=== PATIENT | male | born 1965 | race Caucasian/White ===

== ENCOUNTER 2020-08-12 20:55 | Emergency (ER) | payer BC, OTHER ==
[2020-08-12 22:36] VITALS: BP 159/95; PULSE 69; RESP 18; TEMP 98.1
[2020-08-12] MEDS ORDERED: FLUORESCEIN STRIPS 1 MG STRIP RIGHT EYE ONE (22:41)
[2020-08-12] MEDS ORDERED: PROPARACAINE 0.5% OPHTH DROPS 15 ML BTL RIGHT EYE STA (22:41)
[2020-08-12] MEDS ORDERED: DIPH,PERTUS(ACELL)TETVAC-LF 0.5 ML VIAL IM ONE (23:10)
--- NOTE | 2020-08-12 23:12 | ED ---
General Adult HPI - General Chief complaint: Eye Problems Stated complaint: debrisin R eye Time Seen by Provider: 08/12/20 22:40 Source: patient Mode of arrival: ambulatory - History of Present Illness Initial comments: 55 year-old male patient presents to the emergency department for evaluation of pain and irritation to the right eye. Patient states he was working on a car last night and thinks he may have gotten some rust in his eye. States he went to urgent care today and was told he had an abrasion to the eye and was given tobramycin drops. Patient states that the pain is worse, he feels there is something remaining in the eye, and presented here for further evaluation. Patient states he is having a difficult time keeping the eye open. Denies any blurred or double vision. Denies headache or any other injuries. - Related Data Home Medications Medication Instructions Recorded Confirmed Sertraline [Zoloft] 50 mg PO DAILY 10/17/14 10/17/14 Allergies Allergy/AdvReac Type Severity Reaction Status Date / Time No Known Allergies Allergy Verified 08/12/20 22:32 Review of Systems ROS Statement: Those systems with pertinent positive or pertinent negative responses have been documented in the HPI. ROS Other: All systems not noted in ROS Statement are negative. Past Medical History Past Medical History: No Reported History History of Any Multi-Drug Resistant Organisms: None Reported Past Surgical History: No Surgical Hx Reported Past Psychological History: Anxiety Smoking Status: Never smoker Past Alcohol Use History: Occasional Past Drug Use History: None Reported General Exam General appearance: alert, in no apparent distress, other (Physical well- developed, well-nourished adult male patient in no acute distress.) Eye exam: Present: PERRL, EOMI, other (Fluorescein stain with Wood's lamp examination was performed to the right eye. There is evidence for metallic foreign body with rust ring to around the 3:00 area on the cornea. No evidence for corneal abrasion. Negative Patel sign. I did invert the lids, no further evidence of foreign body.). Absent: scleral icterus, conjunctival injection, periorbital swelling Respiratory exam: Present: normal lung sounds bilaterally. Absent: respiratory distress, wheezes, rales, rhonchi, stridor Cardiovascular Exam: Present: regular rate, normal rhythm, normal heart sounds. Absent: systolic murmur, diastolic murmur, rubs, gallop, clicks Neurological exam: Present: alert, oriented X3, CN II-XII intact Psychiatric exam: Present: normal affect, normal mood Skin exam: Present: warm, dry, intact, normal color. Absent: rash Course Vital Signs 08/12/20 22:32 Temperature 98.1 F Pulse Rate 69 Respiratory 18 Rate Blood Pressure 159/95 O2 Sat by Pulse 99 Oximetry Procedures - Forgein Body Removal Eye Site: Right Location in eye(s): 3:00 on the cornea Anesthetic Used: Proparacaine Eye Exam Technique: Metcalf Lamp, Fluorescein Foreign Body Suspected: Metal Forgein Body Removal Technique: Cotton Swab, Needle Remaining Debris: Yes Patient Tolerated: no complications Medical Decision Making - Medical Decision Making 55-year-old male patient presented for evaluation of possible foreign body to the right eye. Physical examination did reveal a metallic foreign body with rust ring to around 3:00 on the cornea. No evidence for corneal abrasion. I did anesthetize the eye with proparacaine, used insulin needle to remove the foreign body. I did have partial removal rust ring remained. He'll be discharged follow-up with ophthalmology for further evaluation tomorrow. He already had tobramycin drops from previous urgent care visit. He will is instructed to continue use of these. Return parameters were discussed in detail. He verbalizes understanding and agrees with this plan. My attending is Dr. Cifuentes. Disposition Clinical Impression: Foreign body of right eye Disposition: HOME SELF-CARE Condition: Good Instructions (If sedation given, give patient instructions): Eye Foreign Body (ED) Additional Instructions: Follow-up with guest relations associate for recheck as soon as possible. Use drops 4 times daily while awake. Return to the emergency department for any new, worsening, or concerning symptoms. Is patient prescribed a controlled substance at d/c from ED?: No Referrals: Stuart Rangel DO [Primary Care Provider] - 1-2 days Ranjith Del Rio MD [STAFF PHYSICIAN] - 1-2 days Time of Disposition: 23:11
== END 2020-08-12 23:45 | disposition home or self-care (01) ==
LOC: EC 20:55
DX: T15.01XA Foreign body in cornea, right eye, initial encounter (principal); X58.XXXA Exposure to other specified factors, initial encounter; Y92.810 Car as the place of occurrence of the external cause
CPT/HCPCS: 65220; 99282